=== PATIENT | male | born 1950 | race Caucasian/White ===

== ENCOUNTER → 2018-06-01 | Outpatient (CLI) | payer OTHER, BC ==
[~2018-06-01] MED LIST: GADOBUTROL 10 ML VIAL IVP ONE
== END ==
LOC: FIMAGING 10:07
PROVIDERS: ATTEND Internal Medicine
DX: K76.9 Liver disease, unspecified (principal); N28.1 Cyst of kidney, acquired; K80.20 Calculus of gallbladder without cholecystitis without obstruction
CPT/HCPCS: 74183; A9585

== ENCOUNTER → 2018-07-31 | Outpatient (CLI) | payer OTHER, BC | LOC: FIMAGING 14:52 ==